=== PATIENT | male | born 1990 | race Caucasian/White ===

== ENCOUNTER 2023-01-25 21:41 | Emergency (ER) | payer BC ==
[~2023-01-25] VITALS: Ht 185.4 cm; Wt 77.1 kg
[2023-01-25] MEDS ORDERED: TDAP [DIPH/PERTUSSIS/TET] 0.5 ML VIAL IM ONE ×2 (23:27→23:30)
[2023-01-25 23:34] VITALS: BP 123/72; TEMP 98.7; O2SAT 97
== END 2023-01-25 23:34 | disposition home or self-care (01) ==
LOC: ER 21:43
DX: S71.111A Laceration without foreign body, right thigh, initial encounter (principal); Z88.0 Allergy status to penicillin; W26.0XXA Contact with knife, initial encounter; Y93.89 Activity, other specified; Y92.89 Other specified places as the place of occurrence of the external cause; Y99.8 Other external cause status
CPT/HCPCS: 99283; 12002; 90471; 90715; A6403